=== PATIENT | female | born 1965 | race American Indian/Alaskan Native ===

== ENCOUNTER 2017-07-08 17:34 | Emergency (ER) | payer OTHER ==
[2017-07-08 19:44] LABS: BUN/Creatinine Ratio 25; Blood Urea Nitrogen 20 mg/dL (7-17); Calcium 8.6 mg/dL (8.4-10.2); Carbon Dioxide 28 mmol/L (22-30); Glucose 94 mg/dL (65-100)
[2017-07-08 19:45] LABS: Anion Gap 17 mmol/L; Chloride 100.9 mmol/L (98-107); Potassium 3.8 mmol/L (3.6-5.0); Sodium 142 mmol/L (137-145)
[2017-07-08 19:50] LABS: Basophils % (Auto) 0.4 % (0.0-1.8); Hematocrit 35.5 % (30.3-42.9); Hemoglobin 11.2 gm/dl (10.1-14.3); Mean Corpuscular HGB Conc 32 % (30-34); Mean Corpuscular Volume 79 fl (79-97); Platelet Count 254 K/mm3 (140-440); Red Blood Count 4.52 M/mm3 (3.65-5.03); Red Cell Distribution Width 16.5 % (13.2-15.2); White Blood Count 5.6 K/mm3 (4.5-11.0)
[2017-07-08 19:51] LABS: Mean Corpuscular Hemoglobin 25 pg (28-32)
--- NOTE | 2017-07-09 04:24 | Emergency Department Report ---
ED Syncope HPI - General Chief Complaint: Syncope Stated Complaint: PASSED OUT Time Seen by Provider: 07/09/17 04:23 Source: patient Exam Limitations: no limitations - History of Present Illness Timing/Prior Episodes: no prior history Precipitating Factors: Positive: other (WAS DRINKING WATER ANDIT WENT DOWN HER TRACHEA WHICHBEGAN COUGHING FIT) Context: standing Loss of Consciousness: brief (seconds) Current Symptoms: back to normal, injury (LUMBAR AND RIGHAT HIP PAIN) - Related Data Allergies/Adverse Reactions: Allergies No Known Allergies Allergy (Unverified 07/08/17 18:42) Home Medications: Ambulatory Orders Diazepam Tab [Valium] 5 mg PO TID PRN #14 tablet 07/09/17 ED Review of Systems ROS: Stated complaint: PASSED OUT Other details as noted in HPI Constitutional: denies: chills, fever Eyes: denies: eye pain, eye discharge, vision change ENT: denies: ear pain, throat pain Respiratory: denies: cough, shortness of breath, wheezing Cardiovascular: denies: chest pain, palpitations Endocrine: no symptoms reported Gastrointestinal: denies: abdominal pain, nausea, diarrhea Genitourinary: denies: urgency, dysuria, discharge Musculoskeletal: back pain. denies: joint swelling, arthralgia Skin: denies: rash, lesions Neurological: denies: headache, weakness, paresthesias Psychiatric: denies: anxiety, depression Hematological/Lymphatic: denies: easy bleeding, easy bruising ED Past Medical Hx - Past Medical History Previous Medical History?: Yes Hx Hypertension: Yes Hx Arthritis: Yes - Surgical History Past Surgical History?: Yes Additional Surgical History: Hysterectomy, Tubaligation, Fatty tissure removed from right back - Social History Smoking Status: Never Smoker - Medications Home Medications: Home Medications Medication Instructions Recorded Confirmed Last Taken Type Diazepam Tab [Valium] 5 mg PO TID PRN #14 tablet 07/09/17 Unknown Rx ED Physical Exam - General Limitations: No Limitations General appearance: alert, in no apparent distress - Head Head exam: Present: atraumatic, normocephalic - Eye Eye exam: Present: normal appearance - ENT ENT exam: Present: mucous membranes moist - Neck Neck exam: Present: normal inspection - Respiratory Respiratory exam: Present: normal lung sounds bilaterally. Absent: respiratory distress - Cardiovascular Cardiovascular Exam: Present: regular rate, normal rhythm. Absent: systolic murmur, diastolic murmur, rubs, gallop - GI/Abdominal GI/Abdominal exam: Present: soft, normal bowel sounds - Extremities Exam Extremities exam: Present: normal inspection, full ROM, tenderness (RIGHT HIP TENDERNESS) - Back Exam Back exam: Present: normal inspection, tenderness (LUMBARSACRAL MIDLINE TENDERNESS) - Neurological Exam Neurological exam: Present: alert, oriented X3 - Psychiatric Psychiatric exam: Present: normal affect, normal mood - Skin Skin exam: Present: warm, dry, intact, normal color. Absent: rash ED Course Vital Signs 07/08/17 07/08/17 07/08/17 18:33 18:36 22:41 Temperature 98.4 F 98.4 F Pulse Rate 63 64 60 Respiratory 18 16 Rate Blood Pressure 169/83 169/83 165/89 Blood Pressure [Right] O2 Sat by Pulse 100 18 L 99 Oximetry 07/09/17 07/09/17 07/09/17 01:19 01:31 01:36 Temperature 98.2 F Pulse Rate 63 61 60 Respiratory 12 21 20 Rate Blood Pressure 173/90 Blood Pressure 173/90 [Right] O2 Sat by Pulse 100 Oximetry 07/09/17 07/09/17 07/09/17 01:45 02:01 02:15 Temperature Pulse Rate 58 L 53 L 57 L Respiratory 23 21 20 Rate Blood Pressure 173/90 151/76 151/76 Blood Pressure [Right] O2 Sat by Pulse 100 66 L Oximetry 07/09/17 07/09/17 02:31 02:42 Temperature Pulse Rate 57 L Respiratory 16 20 Rate Blood Pressure 151/76 Blood Pressure [Right] O2 Sat by Pulse 100 Oximetry ED Medical Decision Making - Lab Data Result diagrams: 07/08/17 19:09 07/08/17 19:09 - EKG Data EKG shows normal: sinus rhythm - EKG Data Interpretation: other (RAD, T INVERSION I,AVL) Critical care attestation.: If time is entered above; I have spent that time in minutes in the direct care of this critically ill patient, excluding procedure time. ED Disposition Clinical Impression: Lumbosacral pain, Bradycardia, Dehydration Syncope Qualifiers: Syncope type: unspecified Qualified Code(s): R55 - Syncope and collapse Contusion, hip Qualifiers: Encounter type: initial encounter Laterality: right Qualified Code(s): S70.01XA - Contusion of right hip, initial encounter Disposition: DC-01 TO HOME OR SELFCARE Is pt being admited?: No Does the pt Need Aspirin: No Condition: Stable Instructions: Syncope (ED), Low Back Strain (ED), Contusion in Adults (ED) Prescriptions: Diazepam Tab [Valium] 5 mg PO TID PRN #14 tablet PRN Reason: Anxiety Referrals: PRIMARY CARE,MD [Primary Care Provider] - 3-5 Days
--- NOTE | 2017-07-09 05:21 | XRay Report ---
FINAL REPORT EXAM: XR HIP 2-3V RT HISTORY: TRAUMA TO RIGHT HIP FROM SYNCOPE COMPARISONS: None. FINDINGS: AP pelvis with AP and frog-leg lateral views of the right hip The right hip joint is intact. Mild bilateral hip osteoarthrosis. No displaced pelvic or proximal femur fracture identified. IMPRESSION: No displaced fracture involving the pelvis or proximal right femur. Consider additional imaging for worsening/persistent symptoms.
--- NOTE | 2017-07-09 05:21 | XRay Report ---
FINAL REPORT EXAM: XR SPINE LUMBOSACRAL 2-3V HISTORY: TRAUMA TO LUMBAR SPINE FROM SYNCOPE TECHNIQUE: AP and lateral views lumbar spine PRIORS: None. FINDINGS: Lumbar lordosis is intact. Vertebral body heights and intervertebral disc spaces are preserved. Mild leftward convexity of the spine centered at L2-L3. Mild lower lumbar facet arthropathy. No listhesis, spondylolysis or other fracture. IMPRESSION: No acute lumbar spine findings are identified. Consider follow-up CT for more sensitive evaluation of fracture as warranted.
[2017-07-09] MEDS ORDERED: NACL 0.9% 500 ML 500 ML IV ONE (05:35)
[2017-07-09 06:33] VITALS: BP 142/76
== END 2017-07-09 06:32 | disposition home or self-care (01) ==
LOC: ED 17:34
DX: S70.01XA Contusion of right hip, initial encounter (principal); R55 Syncope and collapse; E86.0 Dehydration; R00.1 Bradycardia, unspecified; X58.XXXA Exposure to other specified factors, initial encounter; Y93.89 Activity, other specified; Y92.89 Other specified places as the place of occurrence of the external cause; Y99.8 Other external cause status
CPT/HCPCS: 36415; 72100; 80048; 83880; 84484; 85025; 85379; 93005; 93010

== ENCOUNTER 2020-06-24 12:51 | Emergency (ER) | payer OTHER ==
[2020-06-24 13:22] VITALS: BP 119/59
--- NOTE | 2020-06-24 13:41 | Emergency Department Report ---
Blank Doc - Documentation Documentation: 55-year-old female that presents with right hip, thigh, and lower back pain s/p fall. This initial assessment/diagnostic orders/clinical plan/treatment(s) is/are subject to change based on patient's health status, clinical progression and re- assessment by fellow clinical providers in the ED. Further treatment and workup at subsequent clinical providers discretion. Patient/guardians urged not to elope from the ED as their condition may be serious if not clinically assessed and managed. Initial orders include: 1- Patient sent to [facility] for further evaluation and treatment 2- xrays
--- NOTE | 2020-06-24 14:46 | XRay Report ---
RIGHT HUMERUS 2 VIEWS INDICATION / CLINICAL INFORMATION: Right arm pain after fall. COMPARISON: None available. FINDINGS: BONES and JOINT(S): No acute fracture or subluxation. No significant arthritis. SOFT TISSUES: No significant abnormality. ADDITIONAL FINDINGS: None. IMPRESSION: 1. No acute findings. Signer Name: James Sierra MD Signed: 06/24/2020 2:41 PM Workstation Name: [id number]
--- NOTE | 2020-06-24 14:48 | XRay Report ---
LUMBAR SPINE 3 VIEWS INDICATION: Low back pain after fall. COMPARISON: Lumbar spine series from 07/09/2017 FINDINGS: VERTEBRAE: No acute fracture. There is mild to moderate levoscoliosis that has worsened in the interv al. Grade 1 anterolisthesis is seen at L4-L5 with grade 1 retrolisthesis at L1-L2 and L2-L3. DISC SPACES: There are multilevel mild discogenic degenerative changes. FACET JOINTS: Generalized facet hypertrophy is present. SOFT TISSUES: No significant abnormality. ADDITIONAL FINDINGS: No additional significant findings. IMPRESSION: 1. No acute findings. 2. Interval worsening of lumbar levoscoliosis with anterolisthesis/retrolisthesis as above. 3. Moderate lumbar spondylosis. Signer Name: James Sierra MD Signed: 06/24/2020 2:43 PM Workstation Name: [id number]
--- NOTE | 2020-06-24 14:49 | XRay Report ---
RIGHT HIP 2 VIEWS INDICATION / CLINICAL INFORMATION: Right hip pain after fall. COMPARISON: None available. FINDINGS: BONES and JOINT(S): No acute fracture or subluxation. No significant arthritis. SOFT TISSUES: No significant abnormality. ADDITIONAL FINDINGS: None. IMPRESSION: 1. No acute findings. Signer Name: James Sierra MD Signed: 06/24/2020 2:44 PM Workstation Name: [id number]
--- NOTE | 2020-06-24 15:14 | Emergency Department Report ---
ED Fall HPI - General Chief Complaint: Extremity Injury, Lower Stated Complaint: RT LEG PAINS Time Seen by Provider: 06/24/20 13:40 Source: patient Mode of arrival: Ambulatory - History of Present Illness Initial Comments: Patient is 55 years old female presented to the ER for evaluation after she had a fall 5 days ago. Patient stated that she missed a bench and fell on the gr ound landing on her right side and the back. Patient is complaining of lower back pain, right hip pain and right leg pain. Patient denied any head injury, loss of consciousness, neck pain, abdominal pain, weakness, numbness or tingling sensation. No bowel or bladder incontinence. 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 Witnessed: yes, by family Place Fall Occurred: street Loss of Consciousness: none Prolonged Down Time?: no Symptoms Prior to Fall: none Location: back, pelvis Location - Extremities: Right: Arm, Leg Severity: moderate Severity scale (0 -10): 5 Quality: sharp Context: tripped/slipped Associated Symptoms: denies - Related Data Previous Rx's Medication Instructions Recorded Last Taken Type diazePAM TAB [Valium] 5 mg PO TID PRN #14 tablet 07/09/17 Unknown Rx Allergies Allergy/AdvReac Type Severity Reaction Status Date / Time No Known Allergies Allergy Unverified 07/08/17 18:42 ED Review of Systems ROS: Stated complaint: RT LEG PAINS Other details as noted in HPI Comment: All other systems reviewed and negative Constitutional: denies: chills, fever Respiratory: denies: cough, shortness of breath, SOB with exertion, SOB at rest Cardiovascular: denies: chest pain, palpitations Gastrointestinal: denies: abdominal pain, nausea, vomiting Musculoskeletal: back pain, myalgia. denies: joint swelling, arthralgia Neurological: denies: headache, weakness, numbness, paresthesias, confusion, abnormal gait ED Past Medical Hx - Past Medical History Previous Medical History?: Yes Hx Hypertension: Yes Hx Arthritis: Yes - Surgical History Past Surgical History?: Yes Additional Surgical History: Hysterectomy, Tubaligation, Fatty tissure removed from right back - Social History Smoking Status: Never Smoker Substance Use Type: None - Medications Home Medications: Home Medications Medication Instructions Recorded Confirmed Last Taken Type diazePAM TAB [Valium] 5 mg PO TID PRN #14 tablet 07/09/17 Unknown Rx ED Physical Exam - General Limitations: No Limitations General appearance: alert, in no apparent distress - Head Head exam: Present: atraumatic, normocephalic, normal inspection - Eye Eye exam: Present: normal appearance, PERRL - ENT ENT exam: Present: normal exam, normal orophraynx, mucous membranes moist - Neck Neck exam: Present: normal inspection, full ROM. Absent: tenderness, meningismus, lymphadenopathy, thyromegaly - Respiratory Respiratory exam: Present: normal lung sounds bilaterally - Cardiovascular Cardiovascular Exam: Present: regular rate, normal rhythm, normal heart sounds - GI/Abdominal GI/Abdominal exam: Present: soft, normal bowel sounds. Absent: distended, tenderness, guarding, rebound, rigid, organomegaly, mass, bruit, pulsatile mass, hernia - Extremities Exam Extremities exam: Present: normal inspection, full ROM, normal capillary refill. Absent: pedal edema, calf tenderness - Back Exam Back exam: Present: normal inspection, full ROM. Absent: CVA tenderness (R), CVA tenderness (L) - Neurological Exam Neurological exam: Present: alert, oriented X3, CN II-XII intact, normal gait, reflexes normal. Absent: motor sensory deficit - Psychiatric Psychiatric exam: Present: normal mood - Skin Skin exam: Present: warm, intact, normal color ED Course Vital Signs 06/24/20 13:21 Temperature 98.0 F Pulse Rate 61 Respiratory 16 Rate Blood Pressure 119/59 [Right] O2 Sat by Pulse 98 Oximetry ED Medical Decision Making - Radiology Data Radiology results: report reviewed - Medical Decision Making Patient is 55 years old female presented to the ER for evaluation after she had a fall 5 days ago. Patient stated that she missed a bench and fell on the ground landing on her right side and the back. Patient is complaining of lower back pain, right hip pain and right leg pain. Patient denied any head injury, loss of consciousness, neck pain, abdominal pain, weakness, numbness or tingling sensation. No bowel or bladder incontinence. X-ray of the right hip and right and lumbar sacral spine showed no acute abnormalities however the lumbar sacral spine showed multiple area of degenerative disc disease and disc disease. Patient informed about her report and advised to follow-up with her primary doctor for MRI and further management. Patient also advised to return to the ER if her symptoms get worse or if she develop new symptoms. Critical care attestation.: If time is entered above; I have spent that time in minutes in the direct care of this critically ill patient, excluding procedure time. ED Disposition Clinical Impression: Fall, Contusion, Low back pain Disposition: DC-01 TO HOME OR SELFCARE Is pt being admited?: No Condition: Stable Instructions: Degenerative Disc Disease (ED), Contusion in Adults (ED) Referrals: MERY WOLF MD [Staff Physician] - 3-5 Days
== END 2020-06-24 15:32 | disposition home or self-care (01) ==
LOC: ED 12:51
DX: S80.11XA Contusion of right lower leg, initial encounter (principal); M54.5 Low back pain; I10 Essential (primary) hypertension; M19.90 Unspecified osteoarthritis, unspecified site; Z79.899 Other long term (current) drug therapy; Z90.710 Acquired absence of both cervix and uterus; Z98.51 Tubal ligation status; Z98.890 Other specified postprocedural states; W07.XXXA Fall from chair, initial encounter; Y93.89 Activity, other specified; Y92.410 Unspecified street and highway as the place of occurrence of the external cause; Y99.8 Other external cause status
CPT/HCPCS: 72100